=== PATIENT | female | born 1985 | race American Indian/Alaskan Native ===

== ENCOUNTER 2017-07-02 11:29 | Emergency (ER) | payer BC, MEDICAID ==
[2017-07-02 11:45] VITALS: RESP 18; TEMP 98.7; O2SAT 98
[2017-07-02] MEDS ORDERED: Sodium Chloride 0.9% 500 ML IV STA (11:51)
[2017-07-02 12:19] LABS: BASO # 0.02 K/mm3 (0.0-2.0); BASO % 0.2 % (0.0-3.0); EOS # 0.1 (0.0-0.7); EOS % 1.1 % (1.5-5.0); GRAN # 7.94 (1.4-6.5); GRAN % 84.4 % (50.0-68.0); HEMOGLOBIN 12.3 g/dL (12.0-16.0); LYMPH # 0.8 (1.2-3.4); LYMPH % 8.5 % (22.0-35.0); MEAN CELL VOLUME 90.5 fl (80.0-105.0); MEAN CORPUSCULAR HEMOGLOBIN 31.7 pg (25.0-35.0); MEAN PLATELET VOLUME 8.3 fl (7.0-11.0); MONO # 0.6 (0.1-0.6); MONO % 5.8 % (1.0-6.0); RBC 3.88 10^6/uL (3.5-6.1); RED CELL DISTRIBUTION WIDTH 12.8 % (11.5-14.5); WHITE BLOOD COUNT 9.4 10^3/ul (4.5-11.0)
--- NOTE | 2017-07-02 12:19 | ED PDOC ---
Arrival/HPI - General Chief Complaint: GI Problem Time Seen by Provider: 07/02/17 11:37 Historian: Patient - History of Present Illness Narrative History of Present Illness (Text): 07/02/17 12:02 A 32 year old female, 15 weeks , presents to the emergency department complaining of nausea and blood tinged vomitus this morning. Patient reports daily episodes of vomiting in the mornings throughout her . She reports she was seen at [facility] for similar symptoms. She notes taking Pepcid and Zofran, with mild relief. Patient was recently diagnosed with a urinary tract infection 5 days ago, and placed on Macrobid. Patient states she has not mentioned her symptoms to her ob-commercial real estate underwriter. She was last seen 2 weeks ago and is scheduled for a follow up in 2 days. Patient notes occasionally feeling the baby move, and denies any fever, chills, diarrhea, abdominal pain, urinary symptoms, vaginal bleeding, vaginal discharge, chest pain, shortness of breath or any other complaints. Time/Duration: Other (morning) Symptom Course: Unchanged Context: Home Past Medical History - Provider Review Nursing Documentation Reviewed: Yes - Infectious Disease Hx of Infectious Diseases: None - Gastrointestinal Hx Gastritis: Yes Hx Gastroesophageal Reflux: Yes - Psychiatric Hx Substance Use: No Family/Social History - Physician Review Nursing Documentation Reviewed: Yes Family/Social History: No Known Family HX Smoking Status: Light Smoker < 10 Cigarettes Daily Hx Alcohol Use: No Hx Substance Use: No Allergies/Home Meds Allergies/Adverse Reactions: Allergies No Known Allergies Allergy (Verified 07/02/17 11:45) Home Medications: Home Meds Medication Instructions Recorded Confirmed Famotidine [Pepcid] 20 mg PO Q12 07/02/17 07/02/17 Nitrofurantoin Macrocrystal 100 mg PO Q12 07/02/17 07/02/17 [Nitrofurantoin Macrocrystals] Ondansetron [Zofran] 4 mg PO Q8 07/02/17 07/02/17 Review of Systems - Physician Review All systems were reviewed & negative as marked: Yes - Review of Systems Constitutional: absent: Fevers, Night Sweats Respiratory: absent: SOB Cardiovascular: absent: Chest Pain Gastrointestinal: Nausea, Vomiting. absent: Abdominal Pain, Diarrhea Genitourinary Female: absent: Dysuria, Frequency, Hematuria, Urine Output Changes, Vaginal Bleeding, Vaginal Discharge Physical Exam Vital Signs Reviewed: Yes Vital Signs Temp Pulse Resp BP Pulse Ox 07/02/17 13:23 97 H 18 132/71 98 07/02/17 11:40 98.7 F 105 H 18 134/87 98 Temperature: Afebrile Blood Pressure: Normal Pulse: Tachycardic Respiratory Rate: Normal Appearance: Positive for: Well-Appearing, Non-Toxic, Comfortable Pain Distress: None Mental Status: Positive for: Alert and Oriented X 3 - Systems Exam Head: Present: Atraumatic, Normocephalic Pupils: Present: PERRL Extroacular Muscles: Present: EOMI Conjunctiva: Present: Normal Mouth: Present: Moist Mucous Membranes Pharnyx: Present: Normal. No: ERYTHEMA, EXUDATE, TONSILS ENLARGED Neck: Present: Normal Range of Motion Respiratory/Chest: Present: Clear to Auscultation, Good Air Exchange. No: Respiratory Distress, Accessory Muscle Use Cardiovascular: Present: Regular Rate and Rhythm, Normal S1, S2. No: Murmurs Abdomen: Present: Normal Bowel Sounds. No: Tenderness, Distention, Peritoneal Signs Back: Present: Normal Inspection Upper Extremity: Present: Normal Inspection. No: Cyanosis, Edema Lower Extremity: Present: Normal Inspection. No: Edema Neurological: Present: GCS=15, CN II-XII Intact, Speech Normal Skin: Present: Warm, Dry, Normal Color. No: Rashes Psychiatric: Present: Alert, Oriented x 3, Normal Insight, Normal Concentration Medical Decision Making ED Course and Treatment: 07/02/17 12:02 Impression: A 32 year old female 15 weeks with nausea and vomiting Plan: -- Pelvic ultrasound -- Labs -- Urinalysis -- Zofran and IV fluids -- Reassess and disposition Progress Notes: 07/02/17 13:01 Labs reviewed. CBC WNL. UA negative for ketones, nitrates and leukocytes. Shows bacteria and epithelials. Likely contaminant. On day 5/7 of macrobid for uti. Will send ucx 07/02/17 15:14 Patient tolerating po. U/s shows: Report Date : 07/02/2017 15:20:59 PROCEDURE: OB Pelvic Ultrasound Dictator : Richard Valerio MD IMPRESSION: A single viable intrauterine gestation is identified in transverse lie with an average ultrasonic age is 15 weeks 4 days including cardiac activity of 143 beats per minute. No definite placental abruption or previa. Ultrasound age agrees with menstrual age of gestation as discussed above. Follow -up ultrasonography can be performed for comprehensive anatomical survey. Patient has zofran, pepcid and macrobid rx. Now tolerating po. UCx ordered. Will follow-up with producer arborist manager in 2 days - Lab Interpretations Lab Results: 07/02/17 12:00 07/02/17 12:00 Lab Results 07/02/17 12:24: Urine Color Yellow, Urine Appearance Sl cloudy, Urine pH 6.0, Ur Specific [place] >= 1.030, Urine Protein 30 H, Urine Glucose (UA) Negative, Urine Ketones Negative, Urine Blood Negative, Urine Nitrate Negative, Urine Bilirubin Negative, Urine Urobilinogen 0.2, Ur Leukocyte Esterase Negative, Urine RBC Negative, Urine WBC 1 - 3, Ur Epithelial Cells 6 - 8, Urine Bacteria Mod 07/02/17 12:00: Beta HCG, Quant 46930.00 H 07/02/17 12:00: Sodium 138, Potassium 3.6, Chloride 106, Carbon Dioxide 22, Anion Gap 13, BUN 6 L, Creatinine 0.4 L, Est GFR ( Amer) > 60, Est GFR ( Non-Af Amer) > 60, Random Glucose 93, Calcium 9.5, Phosphorus 3.9, Magnesium 1.6 L, Total Bilirubin 0.2, AST 44 H, ALT 40, Alkaline Phosphatase 55, Total Protein 7.7, Albumin 4.2, Globulin 3.5, Albumin/Globulin Ratio 1.2, Lipase 52 07/02/17 12:00: WBC 9.4, RBC 3.88, Hgb 12.3, Hct 35.1 L, MCV 90.5, MCH 31.7, MCHC 35.0, RDW 12.8, Plt Count 321, MPV 8.3, Gran % 84.4 H, Lymph % (Auto) 8.5 L , [place] % (Auto) 5.8, Eos % (Auto) 1.1 L, Baso % (Auto) 0.2, Gran # 7.94 H, Lymph # 0.8 L, [place] # 0.6, Eos # 0.1, Baso # 0.02 I have reviewed the lab results: Yes - RAD Interpretation Radiology Orders: 07/02/17 12:01 AGE [US] Routine - Medication Orders Current Medication Orders: Discontinued Medications Sodium Chloride (Sodium Chloride 0.9%) 500 mls @ 999 mls/hr IV .Q31M STA Stop: 07/02/17 12:21 Last Admin: 07/02/17 12:04 Dose: 999 mls/hr eMAR Start Stop Document 07/02/17 12:04 SE (Rec: 07/02/17 12:04 SE [id number]) Intravenous Solution Start Date 07/02/17 Start Time 12:04 Ondansetron HCl (Zofran Inj) 4 mg IVP STAT STA Stop: 07/02/17 12:00 Last Admin: 07/02/17 12:06 Dose: 4 mg Comments: pt educated on risks of any medication while , pt aware that zofran is considered "safe" for , confired with pharmacy. Pt chose to have the zofran after education was provided. IVP Administration Document 07/02/17 12:06 SE (Rec: 07/02/17 12:06 [id number]) Charges for Administration # of IVP Administrations 1 - Scribe Statement The provider has reviewed the documentation as recorded by the Hayley Gillette Provider Scribe Attestation: All medical record entries made by the Scribe were at my direction and personally dictated by me. I have reviewed the chart and agree that the record accurately reflects my personal performance of the history, physical exam, medical decision making, and the department course for this patient. I have also personally directed, reviewed, and agree with the discharge instructions and disposition. Disposition/Present on Arrival - Present on Arrival Any Indicators Present on Arrival: No History of DVT/PE: No History of Uncontrolled Diabetes: No Urinary Catheter: No History of Decub. Ulcer: No History Surgical Site Infection Following: None - Disposition Have Diagnosis and Disposition been Completed?: Yes Diagnosis: Vomiting affecting Disposition: HOME/ ROUTINE Disposition Time: 15:15 Patient Plan: Discharge Condition: GOOD Discharge Instructions (ExitCare): Hyperemesis Gravidarum (ED) Additional Instructions: Follow-up with your OB in 2 days. Take full course of antibiotics for uti previously diagnosed. Return to ED if condition worsens. Referrals: Akdemialuis daniel Post, [Primary Care Provider] - Follow up with primary Forms: [employer] (Czech)
[2017-07-02 12:34] LABS: ALB/GLOB RATIO 1.2 (1.1-1.8); ALBUMIN 4.2 g/dL (3.0-4.8); ALT/SGPT 40 U/L (7-56); AST/SGOT 44 U/L (14-36); BLOOD UREA NITROGEN 6 mg/dL (7-21); CALCIUM 9.5 mg/dL (8.4-10.5); GFR AFRICAN-AMERICAN > 60; GFR NON-AFRICAN AMERICAN > 60; LIPASE 52 U/L (23-300); MAGNESIUM 1.6 mg/dL (1.7-2.2)
[2017-07-02 12:39] LABS: URINE APPEARANCE SL CLOUDY (CLEAR); URINE BILIRUBIN NEGATIVE (NEGATIVE); URINE BLOOD NEGATIVE (NEGATIVE); URINE COLOR YELLOW (YELLOW); URINE GLUCOSE (UA) NEGATIVE (NEGATIVE); URINE LEUKOCYTE ESTERASE NEGATIVE Leu/uL (NEGATIVE); URINE NITRATE NEGATIVE (NEGATIVE); URINE PROTEIN 30 mg/dL (<30 mg/dL); URINE UROBILINOGEN 0.2 E.U./dL (<1 E.U./dL)
[2017-07-02 12:47] LABS: URINE RBC NEGATIVE /hpf (0-2)
[2017-07-02 12:48] LABS: URINE BACTERIA MOD (NEG)
[2017-07-02 13:24] VITALS: BP 132/71; PULSE 97
--- NOTE | 2017-07-02 15:26 | US ---
PROCEDURE: OB Pelvic Ultrasound HISTORY: vomiting, hematemesis, ; prior LMP apparently reported 03/17/2017 suggesting an estimated gestational age of 15 weeks 1 day. COMPARISON: None available. FINDINGS: Transabdominal ultrasound was utilized in this examination. UTERUS: A single viable intrauterine gestation identified within the endometrial cavity with acute cardiac activity recorded at 143 beats per minute. lie is apparently transverse. And the developed status seen anterior and fundal with no evidence of placental abruption or previa. No subchorionic hemorrhage appreciated this time in the myometrium is unremarkable. The cervical length is normal at 4.0 cm with a closed internal os. biometry: BPD 3.4 cm corresponds to 16 weeks 3 days. HC 11.4 cm corresponds to 15 weeks 4 days. AC 9.7 cm corresponds to 15 weeks 5 days. FL 1.6 cm corresponds to 14 weeks 5 days. HC/AC ratio is in the normal is within the normal range at 1.18. Estimated gestational age is 15 weeks 4 days based on biometry which agrees with menstrual dates as discussed above. Estimated date of delivery 12/20/2017. anatomical survey not performed due to emergent indication in this patient with an acute history of hematemesis as well. RIGHT OVARY: Not identified. No suspicious adnexal findings. LEFT OVARY: Not identified. No suspicious adnexal findings. FREE FLUID: None. OTHER FINDINGS: None. IMPRESSION: A single viable intrauterine gestation is identified in transverse lie with an average ultrasonic age is 15 weeks 4 days including cardiac activity of 143 beats per minute. No definite placental abruption or previa. Ultrasound age agrees with menstrual age of gestation as discussed above. Follow-up ultrasonography can be performed for comprehensive anatomical survey.
== END 2017-07-02 15:27 | disposition home or self-care (01) ==
LOC: MERGE 11:29 → ED 11:29
DX: O21.9 Vomiting of pregnancy, unspecified (principal); Z3A.15 15 weeks gestation of pregnancy
CPT/HCPCS: 76815; 80053; 81001; 83690; 83735; 84100; 84702; 85025; 87086; 96374; 99284; J2405; J7040

== ENCOUNTER 2017-08-03 08:17 | Emergency (ER) | payer BC, MEDICAID, OTHER ==
[2017-08-03 08:17] VITALS: BMI 27.2
[2017-08-03 08:43] VITALS: TEMP 98.1
--- NOTE | 2017-08-03 09:24 | ED PDOC ---
Arrival/HPI - General Chief Complaint: Abdominal Pain Time Seen by Provider: 08/03/17 09:05 Historian: Patient - History of Present Illness Narrative History of Present Illness (Text): 08/03/17 09:21 This 32 yo female , gravid, who denies pmh, presents to this ED c/o dysuria , and suprapubic pain that radiates to her b/l lower back x 5 hours. Patient stated she is concern she has UTI. Patient denies fever, hematuria, vaginal discharge, flank pain, sob, cp, recent trauma, recent travel, sick contact, or abnormal gait. Time/Duration: Other (see hpi) Context: Home Past Medical History - Provider Review Nursing Documentation Reviewed: Yes - Infectious Disease Hx of Infectious Diseases: None - Reproductive Menopause: No - Cardiac Hx Cardiac Disorders: No - Pulmonary Hx Respiratory Disorders: No - Neurological Hx Neurological Disorder: No - HEENT Hx HEENT Disorder: No - Renal Hx Renal Disorder: No - Endocrine/Metabolic Hx Endocrine Disorders: No - Hematological/Oncological Hx Blood Disorders: No - Integumentary Hx Dermatological Disorder: No - Musculoskeletal/Rheumatological Hx Falls: No - Gastrointestinal Hx Gastritis: Yes Hx Gastroesophageal Reflux: Yes - Genitourinary/Gynecological Hx Genitourinary Disorders: Yes Hx Urinary Tract Infection: Yes - Psychiatric Hx Psychophysiologic Disorder: No Hx Substance Use: No - Surgical History Other/Comment: As per patient "removal of genital wart when was 18 years old" - Anesthesia Hx Anesthesia: Yes - Suicidal Assessment Feels Threatened In Home Enviroment: No Family/Social History - Physician Review Nursing Documentation Reviewed: Yes Family/Social History: Other (noncontributory) Smoking Status: Light Smoker < 10 Cigarettes Daily Hx Alcohol Use: No Hx Substance Use: No Allergies/Home Meds Allergies/Adverse Reactions: Allergies No Known Allergies Allergy (Verified 08/03/17 08:33) Home Medications: Home Meds Medication Instructions Recorded Confirmed Ondansetron [Zofran] 8 mg PO Q8 PRN 07/02/17 08/03/17 Review of Systems - Review of Systems Constitutional: Normal. absent: Fatigue, Weight Change, Fevers Eyes: Normal ENT: Normal Respiratory: Normal. absent: SOB, Cough Cardiovascular: Normal. absent: Chest Pain Gastrointestinal: Normal. absent: Abdominal Pain, Nausea, Vomiting Genitourinary Female: Dysuria. absent: Frequency, Hematuria, Vaginal Bleeding, Vaginal Discharge Musculoskeletal: Normal. absent: Back Pain Skin: Normal Neurological: Normal. absent: Headache, Dizziness Endocrine: Normal Hemo/Lymphatic: Normal Psychiatric: Normal Physical Exam Vital Signs Temp Pulse Resp BP Pulse Ox 08/03/17 11:21 95 H 18 111/68 98 08/03/17 08:42 98.1 F 97 H 17 109/64 100 Temperature: Afebrile Blood Pressure: Normal Pulse: Regular Respiratory Rate: Normal Appearance: Positive for: Well-Appearing, Non-Toxic, Comfortable Pain Distress: None Mental Status: Positive for: Alert and Oriented X 3 - Systems Exam Head: Present: Atraumatic, Normocephalic Pupils: Present: PERRL Extroacular Muscles: Present: EOMI Conjunctiva: Present: Normal Mouth: Present: Moist Mucous Membranes Neck: Present: Normal Range of Motion Respiratory/Chest: Present: Clear to Auscultation, Good Air Exchange. No: Respiratory Distress, Accessory Muscle Use, Wheezes, Retracting, Rhonchi Cardiovascular: Present: Regular Rate and Rhythm, Normal S1, S2. No: Murmurs Abdomen: Present: Tenderness (mild suprapubic tenderness), Normal Bowel Sounds. No: Distention, Peritoneal Signs, Rebound, Guarding Genitourinary/Pelvic Exam: Present: Other (deferred by patient) Back: Present: Normal Inspection. No: CVA Tenderness Upper Extremity: Present: Normal Inspection, Normal ROM. No: Cyanosis, Edema Lower Extremity: Present: Normal Inspection, Normal ROM. No: Edema Neurological: Present: GCS=15, CN II-XII Intact, Speech Normal, Motor Func Grossly Intact, Normal Sensory Function, Normal Cerebellar Funct, Gait Normal Skin: Present: Warm, Dry, Normal Color. No: Rashes Psychiatric: Present: Alert, Oriented x 3, Normal Insight, Normal Concentration Medical Decision Making ED Course and Treatment: 08/03/17 09:36 Suprapubic pain during : -labs -U/S -UA, Urine Cx. 08/03/17 09:53 Patient requested STD test, and she agrees with prophylaxis medication. She understood risk of ABX during . 08/03/17 12:14 Patient is currently taking Zofran 4 mg ODT, PRN at home. Patient felt mild nauseous, therefore, Zofran IV was ordered. 08/03/17 12:15 Re-evaluation. Patient feels better. Discussed results and plan with patient who expresses understanding. All questions answered and there is agreement with the plan to discharge home with instructions. Patient stable for discharge. Return if symptoms persist or worsen. Re-evaluation Time: 12:15 Reassessment Condition: Re-examined, Improved - Lab Interpretations Lab Results: 08/03/17 09:40 08/03/17 09:40 Lab Results 08/03/17 09:40: Beta HCG, Quant 80049.00 H 08/03/17 09:40: Sodium 140, Potassium 3.9, Chloride 107, Carbon Dioxide 22, Anion Gap 15, BUN 5 L, Creatinine 0.5 L, Est GFR ( Amer) > 60, Est GFR ( Non-Af Amer) > 60, Random Glucose 72, Calcium 9.9, Total Bilirubin 0.2, AST 32, ALT 25, Alkaline Phosphatase 47, Total Protein 7.1, Albumin 4.0, Globulin 3.2, Albumin/Globulin Ratio 1.2 08/03/17 09:40: WBC 8.4, RBC 3.42 L, Hgb 10.8 L, Hct 31.4 L, MCV 91.8, MCH 31.6 , MCHC 34.4, RDW 13.4, Plt Count 336, MPV 8.7, Gran % 61.1, Lymph % (Auto) 29.4 , [place] % (Auto) 6.2 H, Eos % (Auto) 2.9, Baso % (Auto) 0.4, Gran # 5.15, Lymph # (Auto) 2.5, [place] # (Auto) 0.5, Eos # (Auto) 0.2, Baso # (Auto) 0.03 08/03/17 09:15: Urine Color Yellow, Urine Appearance Clear, Urine pH 8.5, Ur Specific [place] 1.015, Urine Protein Negative, Urine Glucose (UA) Negative, Urine Ketones Negative, Urine Blood Negative, Urine Nitrate Negative, Urine Bilirubin Negative, Urine Urobilinogen 0.2, Ur Leukocyte Esterase Negative, Urine HCG, Qual Positive I have reviewed the lab results: Yes Interpretation: No clinic. lab abnormalty - RAD Interpretation Narrative RAD Interpretations (Text): 08/03/17 12:15 PROCEDURE: OB Pelvic Ultrasound HISTORY: suprapubic pain LMP: 03/18/2017 COMPARISON: None available. FINDINGS: UTERUS: The study was performed for age determination. Anatomic survey was not performed. BPD equals 20 weeks 1 day Head circumference 19 weeks 4 days Abdominal circumference 20 weeks 5 days Femur length 20 weeks Composite ultrasound age 20 weeks 1 day. Estimated date of delivery 12/20/2017 heart rate 140 Placenta anterior and clear of the os CERVIX: Measures 3.9 cm. Long and closed. No cervical abnormality seen. RIGHT OVARY: Not visualize LEFT OVARY: Not visualize FREE FLUID: None. OTHER FINDINGS: None. IMPRESSION: Viable single intrauterine with gestational age of 20 weeks Radiology Orders: 08/03/17 09:19 AGE [US] Stat - Medication Orders Current Medication Orders: Discontinued Medications Azithromycin (Zithromax) 1,000 mg PO STAT STA PRN Reason: Protocol Stop: 08/03/17 09:57 Last Admin: 08/03/17 10:17 Dose: 1,000 mg Ceftriaxone Sodium (Rocephin 1 Gram Ivpb) 1 gm in 100 mls @ 200 mls/hr IVPB STAT STA PRN Reason: Protocol Stop: 08/03/17 10:23 Last Admin: 08/03/17 10:17 Dose: 200 mls/hr eMAR Start Stop Document 08/03/17 10:17 TALA (Rec: 08/03/17 10:17 TALA [id number]) Intravenous Solution Start Date 08/03/17 Start Time 10:17 End Date 08/03/17 End time 10:47 Total Infusion Time 30 Ondansetron HCl (Zofran Inj) 4 mg IVP STAT STA Stop: 08/03/17 12:02 Disposition/Present on Arrival - Present on Arrival Any Indicators Present on Arrival: No History of DVT/PE: No History of Uncontrolled Diabetes: No Urinary Catheter: No History of Decub. Ulcer: No History Surgical Site Infection Following: None - Disposition Have Diagnosis and Disposition been Completed?: Yes Diagnosis: 14-20 weeks gestation of , Pelvic pain affecting Disposition: HOME/ ROUTINE Disposition Time: 12:16 Patient Plan: Discharge Patient Problems: Current Active Problems Problem Status Onset 14-20 weeks gestation of Acute Pelvic pain affecting Acute Condition: GOOD Discharge Instructions (ExitCare): (ED) Additional Instructions: Call private doctor for follow up visit in 1-2 days. Continue with home medication for nausea. Take medication with food as instructed. Return to emergency if symptoms worsen. Prescriptions: Cephalexin [cephalexin] 500 mg PO BID #10 cap Referrals: PCP,NO [Primary Care Provider] - Follow up with primary [facility] [Outside] - [facility] [[facility] - Follow up with primary Forms: [employer] (Martiniquais)
[2017-08-03 09:35] LABS: PH,URINE 8.5 (4.7-8.0); URINE BILIRUBIN NEGATIVE (NEGATIVE); URINE BLOOD NEGATIVE (NEGATIVE); URINE GLUCOSE (UA) NEGATIVE (NEGATIVE); URINE LEUKOCYTE ESTERASE NEGATIVE Leu/uL (NEGATIVE); URINE NITRATE NEGATIVE (NEGATIVE); URINE PROTEIN NEGATIVE mg/dL (<30 mg/dL); URINE UROBILINOGEN 0.2 E.U./dL (<1 E.U./dL)
[2017-08-03 09:36] LABS: HCG,QUALITATIVE URINE POSITIVE (NEGATIVE); URINE APPEARANCE CLEAR (CLEAR); URINE COLOR YELLOW (YELLOW)
[2017-08-03] MEDS ORDERED: cefTRIAXone 1 gm 1 GM/100 ML BAG IVPB STA (09:54)
[2017-08-03 09:58] LABS: BASO # 0.03 K/mm3 (0.0-2.0); BASO % 0.4 % (0.0-3.0); EOS # 0.2 (0.0-0.7); EOS % 2.9 % (1.5-5.0); GRAN # 5.15 (1.4-6.5); GRAN % 61.1 % (50.0-68.0); HEMOGLOBIN 10.8 g/dL (12.0-16.0); LYMPH # 2.5 (1.2-3.4); LYMPH % 29.4 % (22.0-35.0); MEAN CELL VOLUME 91.8 fl (80.0-105.0); MEAN CORPUSCULAR HEMOGLOBIN 31.6 pg (25.0-35.0); MEAN CORPUSCULAR HGB CONC 34.4 g/dl (31.0-37.0); MEAN PLATELET VOLUME 8.7 fl (7.0-11.0); MONO # 0.5 (0.1-0.6); MONO % 6.2 % (1.0-6.0); RBC 3.42 10^6/uL (3.5-6.1); RED CELL DISTRIBUTION WIDTH 13.4 % (11.5-14.5); WHITE BLOOD COUNT 8.4 10^3/ul (4.5-11.0)
[2017-08-03 10:00] LABS: ALB/GLOB RATIO 1.2 (1.1-1.8); ALT/SGPT 25 U/L (7-56); AST/SGOT 32 U/L (14-36); BLOOD UREA NITROGEN 5 mg/dL (7-21); CALCIUM 9.9 mg/dL (8.4-10.5); GFR AFRICAN-AMERICAN > 60; GFR NON-AFRICAN AMERICAN > 60
[2017-08-03 11:21] VITALS: RESP 18; O2SAT 98
--- NOTE | 2017-08-03 12:02 | US ---
PROCEDURE: OB Pelvic Ultrasound HISTORY: suprapubic pain LMP: 03/18/2017 COMPARISON: None available. FINDINGS: UTERUS: The study was performed for age determination. Anatomic survey was not performed. BPD equals 20 weeks 1 day Head circumference 19 weeks 4 days Abdominal circumference 20 weeks 5 days Femur length 20 weeks Composite ultrasound age 20 weeks 1 day. Estimated date of delivery 12/20/2017 heart rate 140 Placenta anterior and clear of the os CERVIX: Measures 3.9 cm. Long and closed. No cervical abnormality seen. RIGHT OVARY: Not visualize LEFT OVARY: Not visualize FREE FLUID: None. OTHER FINDINGS: None. IMPRESSION: Viable single intrauterine with gestational age of 20 weeks
[2017-08-03 12:36] VITALS: BP 115/65; PULSE 86
== END 2017-08-03 12:50 | disposition home or self-care (01) ==
LOC: ED 08:17
DX: O26.892 Other specified pregnancy related conditions, second trimester (principal); Z3A.20 20 weeks gestation of pregnancy; R10.2 Pelvic and perineal pain
CPT/HCPCS: 76815; 80053; 81003; 84702; 84703; 85025; 87086; 87491; 87591; 96365; 96375; 99283; J0696; J2405